=== PATIENT | male | born 1990 | race Caucasian/White ===

== ENCOUNTER 2019-09-05 13:29 | Emergency (ER) | payer MEDICAID ==
[~2019-09-05] VITALS: Ht 175.3 cm; Wt 96.3 kg
[~2019-09-05 13:29] MED LIST: ARIP5TAB14 PO; BUPR1FIL17 SL; CLON-527 PO; FLUO-213 PO; GABA-532 PO; HYDR-3686 PO; NICO-687 TD; OLAN20TA3 PO; OLAN20TA34 PO; PROP10TA10 PO; QUET100T33 PO; ROPI1TAB6 PO
[2019-09-05 13:49] VITALS: BP 129/54
[2019-09-05] MEDS ORDERED: BENZ-16 PO (14:34)
== END 2019-09-05 14:47 | disposition home or self-care (01) ==
LOC: ER 13:30
DX: R05 Cough (principal); J45.909 Unspecified asthma, uncomplicated; F41.9 Anxiety disorder, unspecified; F20.9 Schizophrenia, unspecified; F32.9 Major depressive disorder, single episode, unspecified; F15.90 Other stimulant use, unspecified, uncomplicated; F11.90 Opioid use, unspecified, uncomplicated; Z60.2 Problems related to living alone; Z59.0 Homelessness; Z56.0 Unemployment, unspecified; Z88.8 Allergy status to other drugs, medicaments and biological substances; Z79.899 Other long term (current) drug therapy
CPT/HCPCS: 99283

== ENCOUNTER 2020-01-05 06:00 | Emergency (ER) | payer MEDICAID ==
[~2020-01-05] VITALS: Ht 175.3 cm; Wt 81.8 kg
[2020-01-05 06:51] LABS: BASOPHILS % (AUTO) 0.6 % (0-1); EOSINOPHILS % (AUTO) 0.5 % (0-6); HEMATOCRIT 32.1 % (42.0-52.0); HEMOGLOBIN 10.7 g/dl (14.0-17.9); LYMPHOCYTES # (AUTO) 0.7 X10'3 (1.1-4.8); LYMPHOCYTES % (AUTO) 11.7 % (21-51); MEAN CORPUSCULAR HEMOGLOBIN 28.7 PG (27.0-31.0); MEAN CORPUSCULAR HGB CONC 33.5 g/dL (33.0-36.5); MEAN CORPUSCULAR VOLUME 85.7 FL (78-98); MEAN PLATELET VOLUME 7.6 FL (7.4-10.4); MONOCYTES # (AUTO) 0.7 X10'3 (0-0.9); NEUTROPHILS # (AUTO) 4.3 X10'3 (1.8-7.7); NEUTROPHILS % (AUTO) 75.2 % (42-75); PLATELET COUNT 153 X10'3 (140-440); RED BLOOD COUNT 3.74 X10'6 (4.70-6.10); RED CELL DISTRIBUTION WIDTH 14.6 % (11.5-14.5); WHITE BLOOD COUNT 5.8 X10'3 (4.5-11.0)
[2020-01-05 07:04] LABS: ALANINE AMINOTRANSFERASE 27 U/L (12-78); ALBUMIN 3.2 G/DL (3.4-5.0); ALKALINE PHOSPHATASE 74 IU/L (46-116); ANION GAP 8 (8-16); ASPARTATE AMINO TRANSFERASE 29 U/L (10-37); BILIRUBIN,TOTAL 0.4 MG/DL (0.1-1.0); BLOOD UREA NITROGEN 6 MG/DL (7-18); BUN/CREATININE RATIO 7.1 (5.4-32.0); CALCIUM 8.3 MG/DL (8.5-10.1); CHLORIDE 100 MMOL/L (99-107); CREATININE 0.85 MG/DL (0.60-1.10); GLUCOSE 105 MG/DL (70-104); POTASSIUM 4.1 MMOL/L (3.5-5.1); SODIUM 134 MMOL/L (135-145); TOTAL CARBON DIOXIDE 26.4 MMOL/L (24-32); TOTAL PROTEIN 6.4 G/DL (6.4-8.2); eGFR > 90 ML/MIN
[2020-01-05] MEDS ORDERED: normal saline 1000ML IV soln IV ONE (07:05)
[2020-01-05] MEDS ORDERED: acetaminophen 325mg tablet PO STA (07:05)
[2020-01-05 07:17] LABS: ETHANOL < 0.010 GM/DL (0.0-0.010)
[2020-01-05 09:25] LABS: CLARITY,URINE CLEAR (Clear); COLOR,URINE YELLOW (Yellow); GLUCOSE, URINE NEGATIVE (Neg); KETONES,URINE NEGATIVE (Neg); LEUKOCYTE ESTERASE ,URINE NEGATIVE (Neg); NITRITES, URINE NEGATIVE (Neg); OCCULT BLOOD,URINE NEGATIVE (Neg); PROTEIN,URINE NEGATIVE (Neg); UROBILINOGEN,URINE 0.2 E.U/dL (0.2-1.0)
[2020-01-05 09:27] LABS: UA COLLECTION TYPE CLN CATCH MIDSTREAM
[2020-01-05 09:35] LABS: URINE AMPHETAMINE SCREEN POSITIVE (Neg); URINE BARBITUATE SCREEN NEGATIVE (Neg); URINE BENZODIAZEPINES SCREEN POSITIVE (Neg); URINE CANNABINOID SCREEN NEGATIVE (Neg); URINE COCAINE SCREEN NEGATIVE (Neg); URINE METHADONE SCREEN NEGATIVE (Neg); URINE OPIATE SCREEN POSITIVE (Neg); URINE PHENCYCLIDINE SCREEN NEGATIVE (Neg)
--- NOTE | 2020-01-05 14:14 | NUR ---
MOVED TO OF #21. LUNCH TRAY GIVEN, ORIENTED TO UNIT. TEMP RE-CHECK AFTER APAP FOR FEVER 97.9. PT STILL HAS 20G SL IN RIGHT F/A IN CASE HE NEEDS MORE IV FLUIDS. PER SECURITY, PT HAD AN ANGRY OUTBURST/VIOLENT EPISODE LAST TIME HE WAS HERE LAST WEEK. CALM AT THIS TIME AND RESTING IN POC.
--- NOTE | 2020-01-05 14:40 | NUR ---
pt sleeping in bed in supine position,RR even and unlabored,will cont to monitor,room insight of nsg station.
--- NOTE | 2020-01-05 15:20 | NUR ---
sc[facility] refrigeration mechanic helper at the bedside evaluating the pt.will cont to monitor.
--- NOTE | 2020-01-05 15:37 | NUR ---
pt up in bed went to use restroom,pt now up in bed eating his lunch,no distress noted,will cont to monitor.
--- NOTE | 2020-01-05 15:48 | NUR ---
pt laying in his bed quietly,no distress noted,will cont to monitor.
--- NOTE | 2020-01-05 16:20 | NUR ---
asked the pt which all meds he take as per pt his grandmother knows better,called carmen wheatleyen at [phone],as per grandma to call at [facility] as they have the list of meds, called on [phone] lynn answered the call and stated that she will fax the medication list to our fax no.
[2020-01-05] MEDS ORDERED: DOCU100C40 PO (17:34)
[2020-01-05] MEDS ORDERED: ALPR-624 PO (17:34)
[2020-01-05] MEDS ORDERED: SENN-263 PO (17:34)
[2020-01-05] MEDS ORDERED: MAGN296S68 PO (17:34)
[2020-01-05] MEDS ORDERED: IBUP-1984 PO (17:34)
[2020-01-05] MEDS ORDERED: NALO4SPR BOTHNARES (17:34)
[2020-01-05] MEDS ORDERED: BUPR1FIL3 SL (17:38)
[2020-01-05] MEDS ORDERED: PALI156D IM (17:38)
--- NOTE | 2020-01-05 18:08 | NUR ---
pt med list of medication sent to the pharmacy get it signed by ugo pinon .
[2020-01-05] MEDS ORDERED: sennosides 8.6mg tablet PO PRN (18:30)
--- NOTE | 2020-01-05 18:30 | NUR ---
Patient is sleeping. In view from nursing station.
[2020-01-05] MEDS ORDERED: magnesium citrate 296ml oral solution PO PRN (18:35)
--- NOTE | 2020-01-05 19:00 | NUR ---
Patient is eating his dinner. He is well oriented and cooperative with staff. Patient returns to sleep following dinner.
[2020-01-05] MEDS: ibuprofen tablet 400 MG TABLET PO SCH (20:03)
[2020-01-05] MEDS: docusate sod 100mg capsule PO SCH (20:03)
[2020-01-05] MEDS: gabapentin 300mg capsule PO SCH (20:03)
--- NOTE | 2020-01-05 20:05 | NUR ---
Breaking primary RN. Pt resting in bed. Pt asked if he could get his anxiety meds as well. Let pt know that we would have to see what is ordered for him. Pt verbalized understanding and laid back down in bed.
[2020-01-05] MEDS ORDERED: LORazepam 1 MG tablet PO ONE (20:35)
[2020-01-05] MEDS: buprenorphine/naloxone 8MG-2MG SUBlingual film SL SCH (21:18)
--- NOTE | 2020-01-06 00:07 | NUR ---
Nurse to nurse given to LAURA Shore 2 from [facility]. This patient is not accepted at this time, he is only being considered.
--- NOTE | 2020-01-06 00:09 | NUR ---
Patient is sleeping in a supine position. In view from nursing station.
--- NOTE | 2020-01-06 01:03 | NUR ---
Patient is sleeping on his right side in bed. No distress.
[2020-01-06] MEDS: ibuprofen tablet 400 MG TABLET PO SCH ×4 (02:00→20:20)
--- NOTE | 2020-01-06 04:15 | NUR ---
Patient awoke, complained of bilateral hand pain, he then fell back to sleep within a couple of minutes.
--- NOTE | 2020-01-06 06:05 | NUR ---
Patient is supine in bed. He is awake following vital sign check. Patient complains of bilateral hand pain. Saline lock Dc'd, cath intact. Patient tells this speech writer he just got out of longterm. Patient states he has done nearly nine years in longterm with a short break in between sentences. "I don't know if I'm better off in or out."
--- NOTE | 2020-01-06 07:00 | NUR ---
Pt. asleep in bed. Normal R&R of respirations noted.
--- NOTE | 2020-01-06 08:43 | NUR ---
Pt. awake and ate his breakfast. RN did 1:1 assessment of pt. at bedside. Pt. is A&Ox4. Pt. reports feeling suicidal without a plan. Pt. +AH reports hearing voices that tell him to kill himself. Pt. denies VH, but that at home he was seeing demons. Pt. states, "I'm tired". Pt. layed down.
[2020-01-06] MEDS: docusate sod 100mg capsule PO SCH ×2 (09:14→20:20)
[2020-01-06] MEDS: gabapentin 300mg capsule PO SCH ×3 (09:14→20:20)
[2020-01-06] MEDS: buprenorphine/naloxone 8MG-2MG SUBlingual film SL SCH ×3 (09:14→20:20)
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
[2020-01-06] MEDS ORDERED: OLANZapine 5mg rapidly disint. tablet PO ONE (12:40)
--- NOTE | 2020-01-06 12:56 | NUR ---
Pt. reports he feels like he's having a panic attack. Pt. requesting Ativan. RN asked ER provider if for PRN and informed this RN that benzodiazapines will not be given because pt. is on Suboxone. Zyprexa Zydis 5mg ordered. Pt. refused Zyprexa Zydis. Pt. washing his face in the bathroom and was able to calm himself down.
--- NOTE | 2020-01-06 13:33 | NUR ---
Breaking primary RN. Pt resting quietly in bed. Pt given scheduled Suboxone. Pt denies any needs at this time.
--- NOTE | 2020-01-06 15:30 | NUR ---
Pt. asleep in supine position. Breathing R&R even and unlabored. No signs of distress observed. will continue to montior.
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
[2020-01-06] MEDS: NICOTINE POLACRILEX 2 MG LOZENGE BC PRN ×2 (16:54→20:20)
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
--- NOTE | 2020-01-06 18:43 | NUR ---
Pt. signed JOHN for pt.'s grandma (Avril Carrion) and [facility] and placed in chart.
--- NOTE | 2020-01-06 19:23 | NUR ---
Patient is awake and well oriented. Anxiety is mild, flat affect is present. Patient makes intermittent eye contact. Patient ate full dinner. Cooperative with staff. Patients bed is in direct view from nursing station.
[2020-01-06] MEDS ORDERED: OLANZapine 2.5MG tablet PO ONE (21:30)
--- NOTE | 2020-01-07 00:52 | NUR ---
Patient is sleeping supine in bed. In view from nursing station.
[2020-01-07] MEDS: ibuprofen tablet 400 MG TABLET PO SCH ×4 (02:00→20:21)
--- NOTE | 2020-01-07 04:31 | NUR ---
Patient is sleeping supine in bed.
[2020-01-07] MEDS: gabapentin 300mg capsule PO SCH ×3 (08:08→20:12)
[2020-01-07] MEDS: docusate sod 100mg capsule PO SCH ×2 (08:08→20:21)
[2020-01-07] MEDS: buprenorphine/naloxone 8MG-2MG SUBlingual film SL SCH ×3 (08:09→20:21)
[2020-01-07] MEDS: protein shake 8oz. (237ml) PO SCH ×3 (08:25→18:00)
--- NOTE | 2020-01-07 08:37 | NUR ---
in bed resting took morning meds and ate breakfast
--- NOTE | 2020-01-07 10:26 | NUR ---
in bed appears to be sleeping seen changing postions and rise and fall of the chest noted
--- NOTE | 2020-01-07 12:43 | NUR ---
relieving RN for break, pt is sleeping,
--- NOTE | 2020-01-07 13:36 | NUR ---
im bed resting ate lunch and took noon meds no complates or suicide attempts
--- NOTE | 2020-01-07 15:29 | NUR ---
in bed resting his father called but he did not want to talk to him
--- NOTE | 2020-01-07 16:38 | NUR ---
resting in bed rise and fall of chest noted
--- NOTE | 2020-01-08 01:02 | NUR ---
Patient is up to bathroom. Normal gait, no distress.
--- NOTE | 2020-01-08 01:05 | NUR ---
Erasmo queen in [facility] - 01/08/20 at 0106 by KATHLEEN Patient sleeping quietly, mid fowlers position. CPAP in place. Patient is pink, warm, and dry.
[2020-01-08] MEDS: ibuprofen tablet 400 MG TABLET PO SCH ×4 (02:00→20:19)
[2020-01-08] MEDS: protein shake 8oz. (237ml) PO SCH ×3 (08:00→18:48)
[2020-01-08] MEDS: NICOTINE POLACRILEX 2 MG LOZENGE BC PRN ×3 (08:11→18:48)
[2020-01-08] MEDS: docusate sod 100mg capsule PO SCH ×2 (08:11→20:19)
[2020-01-08] MEDS: gabapentin 300mg capsule PO SCH ×3 (08:11→20:19)
[2020-01-08] MEDS: buprenorphine/naloxone 8MG-2MG SUBlingual film SL SCH ×3 (08:42→20:19)
--- NOTE | 2020-01-08 20:50 | NUR ---
relieving RN for break, pt is lying quietly on bed watching TV.
[2020-01-08] MEDS ORDERED: ALPRAZolam 0.5mg tablet PO PRN (21:55)
[2020-01-08] MEDS: ALPRAZolam 0.5mg tablet PO PRN (22:05)
[2020-01-09] MEDS: ibuprofen tablet 400 MG TABLET PO SCH ×4 (02:00→20:25)
--- NOTE | 2020-01-09 06:30 | NUR ---
pt is sleeping no concerns at this time
[2020-01-09] MEDS: docusate sod 100mg capsule PO SCH ×2 (08:04→20:25)
[2020-01-09] MEDS: buprenorphine/naloxone 8MG-2MG SUBlingual film SL SCH ×3 (08:04→20:27)
[2020-01-09] MEDS: gabapentin 300mg capsule PO SCH ×3 (08:04→20:25)
[2020-01-09] MEDS: protein shake 8oz. (237ml) PO SCH ×3 (08:06→18:33)
--- NOTE | 2020-01-09 08:33 | NUR ---
PT WOKE UP HAD BREAKFAST. PT STATES HE FEELS TIRED BUT NOT HAVING AN ISSUES FROM WITHDRAWALS.
--- NOTE | 2020-01-09 09:52 | NUR ---
Releaving RN for break, Pt sleeping on his back, normal breathing, no S/S of distress.
--- NOTE | 2020-01-09 10:00 | NUR ---
pt is sleeping
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
--- NOTE | 2020-01-09 12:14 | NUR ---
pt is resting
[2020-01-09] MEDS: NICOTINE POLACRILEX 2 MG LOZENGE BC PRN ×2 (13:23→20:25)
--- NOTE | 2020-01-09 14:25 | NUR ---
relieving RN for break, pt is resting quietly on bed, resp even and unlabored
--- NOTE | 2020-01-09 15:00 | NUR ---
pt is resting no issues at this time
--- NOTE | 2020-01-09 16:07 | NUR ---
pt is sleeping
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
--- NOTE | 2020-01-09 19:00 | NUR ---
Pt eating dinner.
--- NOTE | 2020-01-09 20:00 | NUR ---
Pt resting in bed, meds administered. Pt calm and cooperative.
[2020-01-09] MEDS: ALPRAZolam 0.5mg tablet PO PRN (20:25)
--- NOTE | 2020-01-09 20:40 | NUR ---
relieving RN for break, pt is talking to Solo Jimenez, social organization professor, from [facility]
--- NOTE | 2020-01-09 20:42 | NUR ---
gave pt apple juice
--- NOTE | 2020-01-09 21:00 | NUR ---
Pt resting quietly, respirations normal, no s/s of distress.
--- NOTE | 2020-01-09 22:31 | NUR ---
Pt resting quietly, respirations normal, no s/s of distress.
--- NOTE | 2020-01-10 | NUR ---
Pt resting quietly, respirations normal, no s/s of distress.
--- NOTE | 2020-01-10 01:00 | NUR ---
Pt resting quietly, respirations normal, no s/s of distress.
[2020-01-10] MEDS: ibuprofen tablet 400 MG TABLET PO SCH ×4 (02:00→19:04)
--- NOTE | 2020-01-10 02:12 | NUR ---
Pt resting quietly, respirations normal, no s/s of distress.
--- NOTE | 2020-01-10 03:00 | NUR ---
Pt resting quietly, respirations normal, no s/s of distress.
--- NOTE | 2020-01-10 04:00 | NUR ---
Pt resting quietly, respirations normal, no s/s of distress.
--- NOTE | 2020-01-10 05:34 | NUR ---
Pt resting quietly, respirations normal, no s/s of distress.
--- NOTE | 2020-01-10 07:56 | NUR ---
Patient sleeping in bed. Respirations are even and unlabored.
[2020-01-10] MEDS: docusate sod 100mg capsule PO SCH ×2 (08:28→19:04)
[2020-01-10] MEDS: buprenorphine/naloxone 8MG-2MG SUBlingual film SL SCH ×2 (08:29→14:00)
[2020-01-10] MEDS: protein shake 8oz. (237ml) PO SCH ×3 (08:29→18:00)
[2020-01-10] MEDS: gabapentin 300mg capsule PO SCH ×2 (08:29→13:59)
[2020-01-10] MEDS: NICOTINE POLACRILEX 2 MG LOZENGE BC PRN ×3 (08:31→19:05)
--- NOTE | 2020-01-10 09:20 | NUR ---
Patient ate breakfast and took medications without incident. Grandmother called on the phone. Patient now resting in bed with eyes closed on left side.
--- NOTE | 2020-01-10 09:38 | NUR ---
breaking primary RN pt is in bed resting on his left side, appears to be asleep, regular breathing present, will continue to monitor
--- NOTE | 2020-01-10 11:13 | NUR ---
Pt. sleeping in bed. No s/s of distress. Respirations are even and unlabored.
--- NOTE | 2020-01-10 12:12 | NUR ---
Breaking primary, RN, pt is supine in bed, eyes closed, no s/s of agitation, regular breathing observed
--- NOTE | 2020-01-10 14:08 | NUR ---
Patient up to the bathroom. Now eating lunch. Took medications without incident. Patient has been sleeping most of the shift.
--- NOTE | 2020-01-10 15:32 | NUR ---
breaking primary RN, pt is sitting up in bed requesting water
--- NOTE | 2020-01-10 16:59 | NUR ---
Patient continues to sleep in bed. Respirations are even and nonlabored.
--- NOTE | 2020-01-10 18:21 | NUR ---
Patient's mother is at the bedside.
--- NOTE | 2020-01-10 19:23 | NUR ---
One to one with the patient. The patient's grandmother and the patient are both requesting to be re-evaluated on the 5150 hold. The day shift mud worker from [facility] stated that he would request the restaurant shift supervisor staff would try to evaluate him tonight and the patient was made aware. The patient was calm and cooperative during the assessment. He denies that he is currently hearing voices. He denies active or passive suicidal thoughts. Stated he wants to live for his son. He stated that he would follow up with [facility] where he is connected for services and he would return to his grandmother's home. He denies anxiety.
[2020-01-10 20:51] VITALS: BP 102/60
[2020-01-22] MEDS ORDERED: SULF1TAB49 PO (18:39)
[2020-01-28] MEDS ORDERED: paliperidone palmitate 156 mg/ml inj.**IM only IM SCH (18:30)
== END 2020-01-10 20:55 | disposition home or self-care (01) ==
LOC: ER 06:00
DX: F20.0 Paranoid schizophrenia (principal); F19.10 Other psychoactive substance abuse, uncomplicated; R50.9 Fever, unspecified; J45.909 Unspecified asthma, uncomplicated; F41.9 Anxiety disorder, unspecified; F32.9 Major depressive disorder, single episode, unspecified; Z86.19 Personal history of other infectious and parasitic diseases; Z87.11 Personal history of peptic ulcer disease; Z56.0 Unemployment, unspecified; Z88.8 Allergy status to other drugs, medicaments and biological substances; Z79.899 Other long term (current) drug therapy
CPT/HCPCS: 36415; 71045; 80053; 80305; 80320; 81003; 83605; 84145; 84443; 85025; 87040; 87635; 99285; J7030

== ENCOUNTER 2020-01-20 14:04 | Emergency (ER) | payer MEDICAID ==
[~2020-01-20] VITALS: Ht 175.3 cm; Wt 77.3 kg
[~2020-01-20 14:04] MED LIST changes: +ALPR-624 PO; +BUPR1FIL3 SL; +DOCU100C40 PO; +IBUP-1984 PO; +MAGN296S68 PO; +NALO4SPR BOTHNARES; +PALI156D IM; +SENN-263 PO
--- NOTE | 2020-01-20 15:36 | NUR ---
CHARGE NURSE SPOKE WITH PT'S GRANDMA REGARDING HIS MED HX.
--- NOTE | 2020-01-20 15:37 | NUR ---
PT [facility] REX HERNANDEZ [phone]
[2020-01-20] MEDS ORDERED: NALO4SPR BOTHNARES (16:24)
[2020-01-20 16:39] VITALS: BP 98/57
[2020-01-20] MEDS ORDERED: acetaminophen 325mg tablet PO ONE (16:40)
[2020-01-20] MEDS ORDERED: ondansetron 4mg rapidly disintigrating tab PO ONE (16:50)
--- NOTE | 2020-01-20 17:12 | NUR ---
[facility] RIDE 90 MIN WAIT
[2020-01-22] MEDS ORDERED: SULF1TAB49 PO (18:39)
== END 2020-01-20 17:32 | disposition home or self-care (01) ==
LOC: ER 14:04
DX: T40.1X1A Poisoning by heroin, accidental (unintentional), initial encounter (principal); F11.10 Opioid abuse, uncomplicated; F20.0 Paranoid schizophrenia; J45.909 Unspecified asthma, uncomplicated; F41.9 Anxiety disorder, unspecified; F32.9 Major depressive disorder, single episode, unspecified; F15.90 Other stimulant use, unspecified, uncomplicated; Z86.19 Personal history of other infectious and parasitic diseases; Z56.0 Unemployment, unspecified; Z88.8 Allergy status to other drugs, medicaments and biological substances; Z79.899 Other long term (current) drug therapy; Y92.89 Other specified places as the place of occurrence of the external cause
CPT/HCPCS: 99283

== ENCOUNTER → 2020-01-22 | Emergency (ER) | payer MEDICAID ==
[~2020-01-22] VITALS: Ht 175.3 cm; Wt 75.9 kg
[~2020-01-22] MED LIST changes: -ARIP5TAB14 PO; -BUPR1FIL17 SL; -CLON-527 PO; -FLUO-213 PO; -HYDR-3686 PO; +LIDOcaine 1% W/epiNEPHrine 1:200,000 10ml vial IJ ONE; -NICO-687 TD; -OLAN20TA3 PO; -OLAN20TA34 PO; -PROP10TA10 PO; -QUET100T33 PO; -ROPI1TAB6 PO; +SULF1TAB49 PO
[2020-01-22 18:15] VITALS: BP 107/74
== END | disposition home or self-care (01) ==
LOC: ER 17:58
DX: L02.414 Cutaneous abscess of left upper limb (principal); J45.909 Unspecified asthma, uncomplicated; F41.9 Anxiety disorder, unspecified; F32.9 Major depressive disorder, single episode, unspecified; F20.9 Schizophrenia, unspecified; F15.90 Other stimulant use, unspecified, uncomplicated; F11.90 Opioid use, unspecified, uncomplicated; Z86.19 Personal history of other infectious and parasitic diseases; Z56.0 Unemployment, unspecified; Z88.8 Allergy status to other drugs, medicaments and biological substances; Z79.2 Long term (current) use of antibiotics; Z79.899 Other long term (current) drug therapy
CPT/HCPCS: 10060; 99283

== ENCOUNTER 2020-03-23 15:42 | Emergency (ER) | payer MEDICAID ==
[~2020-03-23] VITALS: Ht 175.3 cm; Wt 79.5 kg
[~2020-03-23 15:42] MED LIST changes: -LIDOcaine 1% W/epiNEPHrine 1:200,000 10ml vial IJ ONE; -SULF1TAB49 PO
[2020-03-23 15:50] VITALS: BP 115/75
[2020-03-23] MEDS ORDERED: AMOX-422 PO (16:22)
[2020-03-23] MEDS ORDERED: DOXY100C77 PO (16:23)
== END 2020-03-23 16:52 | disposition home or self-care (01) ==
LOC: ER 15:42
DX: L02.519 Cutaneous abscess of unspecified hand (principal); J45.909 Unspecified asthma, uncomplicated; F41.9 Anxiety disorder, unspecified; F32.9 Major depressive disorder, single episode, unspecified; F20.9 Schizophrenia, unspecified; F15.90 Other stimulant use, unspecified, uncomplicated; F11.90 Opioid use, unspecified, uncomplicated; Z86.19 Personal history of other infectious and parasitic diseases; Z87.11 Personal history of peptic ulcer disease; Z56.0 Unemployment, unspecified; Z88.8 Allergy status to other drugs, medicaments and biological substances; Z79.2 Long term (current) use of antibiotics; Z79.899 Other long term (current) drug therapy
CPT/HCPCS: 99283

== ENCOUNTER 2020-05-13 05:50 | Emergency (ER) | payer MEDICAID ==
[~2020-05-13] VITALS: Ht 175.3 cm; Wt 79.5 kg
[2020-05-13 06:04] VITALS: BP 123/86
[2020-05-13] MEDS ORDERED: POLY119P2 PO (06:20)
[2020-05-13] MEDS ORDERED: BISA-78 PO (06:20)
[2020-05-13] MEDS ORDERED: methylnaltrexone br 12mg/0.6ml inj***SubQ only SQ ONE (06:20)
== END 2020-05-13 08:03 | disposition home or self-care (01) ==
LOC: ER 05:50
DX: K59.00 Constipation, unspecified (principal); R10.84 Generalized abdominal pain; J45.909 Unspecified asthma, uncomplicated; F41.9 Anxiety disorder, unspecified; F32.9 Major depressive disorder, single episode, unspecified; F20.9 Schizophrenia, unspecified; F15.90 Other stimulant use, unspecified, uncomplicated; F11.90 Opioid use, unspecified, uncomplicated; Z86.19 Personal history of other infectious and parasitic diseases; Z87.11 Personal history of peptic ulcer disease; Z56.0 Unemployment, unspecified; Z88.8 Allergy status to other drugs, medicaments and biological substances; Z79.899 Other long term (current) drug therapy
CPT/HCPCS: 96372; 99283; J2212

== ENCOUNTER 2020-08-27 19:06 | Emergency (ER) | payer MEDICAID ==
[~2020-08-27] VITALS: Ht 177.8 cm; Wt 81.8 kg
[~2020-08-27 19:06] MED LIST changes: +BISA-78 PO; +POLY119P2 PO
[2020-08-27 19:12] VITALS: BP 128/79
== END 2020-08-27 19:45 ==
LOC: ER 19:06
DX: R10.10 Upper abdominal pain, unspecified (principal); R00.0 Tachycardia, unspecified; F20.9 Schizophrenia, unspecified; J45.909 Unspecified asthma, uncomplicated; F15.90 Other stimulant use, unspecified, uncomplicated; F11.90 Opioid use, unspecified, uncomplicated; Z87.01 Personal history of pneumonia (recurrent); Z87.11 Personal history of peptic ulcer disease; Z86.19 Personal history of other infectious and parasitic diseases; Z56.0 Unemployment, unspecified; Z88.8 Allergy status to other drugs, medicaments and biological substances; Z79.899 Other long term (current) drug therapy; Z13.9 Encounter for screening, unspecified
CPT/HCPCS: 99283

== ENCOUNTER 2020-09-04 20:24 | Emergency (ER) | payer MEDICAID ==
[~2020-09-04] VITALS: Ht 175.3 cm; Wt 77.2 kg
[2020-09-04 22:01] VITALS: BP 117/70
== END 2020-09-04 22:05 | disposition home or self-care (01) ==
LOC: ER 20:24
DX: F11.10 Opioid abuse, uncomplicated (principal); J45.909 Unspecified asthma, uncomplicated; Z00.00 Encounter for general adult medical examination without abnormal findings; Z88.8 Allergy status to other drugs, medicaments and biological substances; Z79.899 Other long term (current) drug therapy; Z86.19 Personal history of other infectious and parasitic diseases; Z87.11 Personal history of peptic ulcer disease; Z86.73 Personal history of transient ischemic attack (TIA), and cerebral infarction without residual deficits; Z56.0 Unemployment, unspecified
CPT/HCPCS: 99281

== ENCOUNTER 2021-03-15 04:23 | Emergency (ER) | payer MEDICAID ==
[~2021-03-15] VITALS: Ht 175.3 cm; Wt 90.9 kg
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
--- NOTE | 2021-03-15 04:35 | NUR ---
STATES HE HAS BENZOS AND FENTANYL IN HIS SYSTEM.
[2021-03-15 04:51] LABS: BASOPHILS # (AUTO) 0.1 X10'3 (0-0.2); BASOPHILS % (AUTO) 0.9 % (0-1); EOSINOPHILS # (AUTO) 0.2 X10'3 (0-0.9); EOSINOPHILS % (AUTO) 2.3 % (0-6); HEMATOCRIT 40.4 % (42.0-52.0); HEMOGLOBIN 13.7 g/dl (14.0-17.9); LYMPHOCYTES # (AUTO) 3.2 X10'3 (1.1-4.8); LYMPHOCYTES % (AUTO) 43.7 % (21-51); MEAN CORPUSCULAR HEMOGLOBIN 30.3 PG (27.0-31.0); MEAN CORPUSCULAR VOLUME 89.2 FL (78-98); MEAN PLATELET VOLUME 6.9 FL (7.4-10.4); MONOCYTES # (AUTO) 0.7 X10'3 (0-0.9); MONOCYTES % (AUTO) 9.2 % (2-12); NEUTROPHILS # (AUTO) 3.2 X10'3 (1.8-7.7); NEUTROPHILS % (AUTO) 43.9 % (42-75); PLATELET COUNT 299 X10'3 (140-440); RED BLOOD COUNT 4.53 X10'6 (4.70-6.10); RED CELL DISTRIBUTION WIDTH 13.9 % (11.5-14.5); WHITE BLOOD COUNT 7.3 X10'3 (4.5-11.0)
[2021-03-15 04:59] VITALS: BP 112/76
[2021-03-15 05:05] LABS: ALANINE AMINOTRANSFERASE 54 U/L (12-78); ALBUMIN 4.2 G/DL (3.4-5.0); ALBUMIN/GLOBULIN RATIO 1.1 (1.1-1.5); ALKALINE PHOSPHATASE 106 IU/L (46-116); ANION GAP 11 (8-16); ASPARTATE AMINO TRANSFERASE 30 U/L (10-37); BILIRUBIN,TOTAL 0.2 MG/DL (0.1-1.0); BLOOD UREA NITROGEN 11 MG/DL (7-18); BUN/CREATININE RATIO 10.6 (5.4-32.0); CALCIUM 8.6 MG/DL (8.5-10.1); CHLORIDE 104 MMOL/L (99-107); CREATININE 1.04 MG/DL (0.60-1.10); ETHANOL < 0.010 GM/DL (0.0-0.010); GLUCOSE 87 MG/DL (70-104); POTASSIUM 3.8 MMOL/L (3.5-5.1); SODIUM 144 MMOL/L (135-145); TOTAL CARBON DIOXIDE 28.9 MMOL/L (24-32); TOTAL PROTEIN 7.9 G/DL (6.4-8.2); eGFR 84 ML/MIN
--- NOTE | 2021-03-15 06:03 | NUR ---
contacted poision control. recommend airway management if needed and observation for 4-6 hours from point of medical contact. no additional workup necessary per their recomendation. case # [phone]
== END 2021-03-15 06:22 | disposition left against medical advice (07) ==
LOC: ER 04:24
DX: T42.4X1A Poisoning by benzodiazepines, accidental (unintentional), initial encounter (principal); J45.909 Unspecified asthma, uncomplicated; R11.10 Vomiting, unspecified; F41.9 Anxiety disorder, unspecified; F32.9 Major depressive disorder, single episode, unspecified; F20.9 Schizophrenia, unspecified; F15.90 Other stimulant use, unspecified, uncomplicated; F11.90 Opioid use, unspecified, uncomplicated; F19.90 Other psychoactive substance use, unspecified, uncomplicated; Z53.29 Procedure and treatment not carried out because of patient's decision for other reasons; Z86.19 Personal history of other infectious and parasitic diseases; Z87.11 Personal history of peptic ulcer disease; Z56.0 Unemployment, unspecified; Z88.8 Allergy status to other drugs, medicaments and biological substances; Z79.899 Other long term (current) drug therapy; Y92.89 Other specified places as the place of occurrence of the external cause
CPT/HCPCS: 36415; 80053; 80320; 85025; 99283

== ENCOUNTER 2021-05-25 22:55 | Emergency (ER) | payer MEDICAID ==
[~2021-05-25] VITALS: Ht 175.3 cm; Wt 90.9 kg
[2021-05-25 23:34] VITALS: BP 120/92
== END 2021-05-26 03:42 | disposition left against medical advice (07) ==
LOC: ER 22:55
DX: R51.9 Headache, unspecified (principal); Z53.21 Procedure and treatment not carried out due to patient leaving prior to being seen by health care provider

== ENCOUNTER 2021-11-20 07:54 | Emergency (ER) | payer MEDICAID ==
[~2021-11-20] VITALS: Ht 175.3 cm; Wt 97.7 kg
[2021-11-20 08:02] VITALS: BP 120/81
[2021-11-20] MEDS ORDERED: TETanus/Pertussis (Acell)/Diphther VAC/PF (Tdap-Adult) 0.5ml syringe IMVAC ONE (08:30)
[2021-11-20] MEDS ORDERED: LIDOcaine 1% 30ml preserv. free vial IJ ONE (08:30)
[2021-11-20] MEDS ORDERED: CEPH-585 PO (10:02)
== END 2021-11-20 10:13 | disposition home or self-care (01) ==
LOC: ER 07:55
DX: S61.211A Laceration without foreign body of left index finger without damage to nail, initial encounter (principal); J45.909 Unspecified asthma, uncomplicated; Z86.19 Personal history of other infectious and parasitic diseases; Z87.11 Personal history of peptic ulcer disease; F15.90 Other stimulant use, unspecified, uncomplicated; F11.90 Opioid use, unspecified, uncomplicated; Z56.0 Unemployment, unspecified; Z88.8 Allergy status to other drugs, medicaments and biological substances; Z79.2 Long term (current) use of antibiotics; Z79.899 Other long term (current) drug therapy; W26.8XXA Contact with other sharp object(s), not elsewhere classified, initial encounter; Y93.89 Activity, other specified; Y92.89 Other specified places as the place of occurrence of the external cause; Y99.8 Other external cause status
CPT/HCPCS: 12001; 90471; 90715; 99283

== ENCOUNTER 2022-09-06 22:22 | Emergency (ER) | payer MEDICAID ==
[~2022-09-06] VITALS: Ht 175.3 cm; Wt 100.9 kg
[~2022-09-06 22:22] MED LIST changes: +CEPH-585 PO
[2022-09-06 22:29] VITALS: BP 122/80
== END 2022-09-06 23:00 ==
LOC: ER 22:23
DX: S00.83XA Contusion of other part of head, initial encounter (principal); J45.909 Unspecified asthma, uncomplicated; F41.9 Anxiety disorder, unspecified; F32.9 Major depressive disorder, single episode, unspecified; F20.9 Schizophrenia, unspecified; F15.90 Other stimulant use, unspecified, uncomplicated; F11.90 Opioid use, unspecified, uncomplicated; Z56.0 Unemployment, unspecified; Z86.19 Personal history of other infectious and parasitic diseases; Z88.8 Allergy status to other drugs, medicaments and biological substances; Z79.899 Other long term (current) drug therapy; W18.39XA Other fall on same level, initial encounter; Y93.89 Activity, other specified; Y92.89 Other specified places as the place of occurrence of the external cause; Y99.8 Other external cause status
CPT/HCPCS: 99283